=== PATIENT | female | born 1960 | race Caucasian/White ===

== ENCOUNTER 2017-02-07 12:15 | Emergency (ER) | payer OTHER ==
[~2017-02-07] VITALS: Ht 162.6 cm; Wt 68.5 kg
[~2017-02-07 12:15] MED LIST: AMLO-147 PO; CHOL2000 PO; DICL75TA2 PO; GABA300C16 PO
[2017-02-07 12:19] VITALS: Ht 162.6 cm; Wt 68.5 kg
[2017-02-07] MEDS ORDERED: FAMOTIDINE 20 MG TAB PO STA (16:09)
[2017-02-07] MEDS ORDERED: LIDOCAINE/MYLANTA 40 ML BTL PO STA (16:09)
[2017-02-07] MEDS ORDERED: KETOROLAC 15 MG INJ IV STA (16:09)
[2017-02-07] MEDS ORDERED: ONDANSETRON 4 MG INJ IV STA (16:09)
[2017-02-07] MEDS ORDERED: BELLADONNA/PHENOBARBITAL TAB PO STA (16:09)
[2017-02-07] MEDS ORDERED: SOD CHLORIDE 0.9% 1,000 ML IV STA (16:09)
[2017-02-07 16:46] LABS: ADD SCAN DIFF NO
--- NOTE | 2017-02-07 16:52 | RADRPT ---
PROCEDURE: CT Abdomen and Pelvis without contrast. CLINICAL INDICATION: Mid abdominal pain and vomiting for approximately 1 week[address] TECHNIQUE: CT scan of the abdomen and pelvis without contrast was performed on a multidetector hig h-resolution CT scanner. The patient was scanned without intravenous contrast. Coronal and sagittal reformatted images were obtained from the axial source images. Images were reviewed on a high-resol [employer] PACS workstation. The total exam CTDI equals 10.39 mGy and the total exam DLP equals 586.45 mG y-cm. COMPARISON: None. FINDINGS: CT abdomen: The lung bases are clear. The heart size is normal, without pericardial thickening or effusion. Rig ht hemidiaphragm is elevated. The liver is normal in size and density without focal mass or intrahepatic biliary dilatation. The spleen is normal in size and homogeneous in density. The stomach is grossly unremarkable. The panc reas as visualized is normal. The gallbladder and biliary tree are unremarkable and there is no ligia dence for biliary dilatation. The adrenal glands are symmetric and normal. A small 2 mm nonobstruc tive thrombus is present at the inferior pole of the right kidney and a small 3 mm nonobstructive ca lculus is present at the inferior pole of the left. There is no evidence of ureteral calculus or hy dronephrosis. No perinephric fat stranding or fluid collection is seen. The aorta is of normal caliber. There is no retroperitoneal lymphadenopathy. The mark hepatis reg ion is clear. The bowel and mesentery, as visualized, are equally unremarkable. There is a small fa t-containing umbilical hernia. CT pelvis: The small bowel loops situated within the pelvis are unremarkable. The pelvic organs are normal. T he pelvic sidewalls and inguinal regions are clear. The sigmoid colon and rectum are unremarkable. The appendix is normal. No mass, lymphadenopathy, or free fluid is seen. No acute inflammation is s een. The surrounding osseous structures are unremarkable. There is a mild diffuse posterior disk bulge a t L4-L5 resulting in mild central canal narrowing. No osteolytic or osteoblastic lesion is detected. IMPRESSION: 1. No abdominal or pelvic acute inflammatory process, mass, or lymphadenopathy. 2. Small bilateral nonobstructive renal calculi. 3. Small fat-containing umbilical hernia. 4. Hepatomegaly. 5. Elevated right hemidiaphragm. RPTAT: CC .Hemant Pham MD, MD Date Time Electronically viewed and signed by .Hemant Pham MD, MD on 02/07/2017 16:50 .A/
[2017-02-07 16:55] LABS: ALBUMIN 4.4 g/dl (3.3-4.9)
[2017-02-07 16:56] LABS: CHLORIDE 103 mmol/L (97-110); POTASSIUM 3.6 mmol/L (3.5-5.1); SODIUM 141 mmol/L (135-144)
[2017-02-07 16:58] LABS: ALBUMIN/GLOBULIN RATIO 1.25; ALKALINE PHOSPHATASE 113 IU/L (42-121); ANION GAP 15 (8-16); ASPARTATE AMINO TRANSFERASE 47 IU/L (15-46); BILIRUBIN,INDIRECT 0.8 mg/dl (0-1.1); BILIRUBIN,TOTAL 0.8 mg/dl (0.2-1.3); BLOOD UREA NITROGEN 16 mg/dl (7-20); CARBON DIOXIDE 27 mmol/L (21-31); CREATININE 0.64 mg/dl (0.44-1.00); TOTAL PROTEIN 7.9 g/dl (6.1-8.1)
[2017-02-07 16:59] LABS: ALANINE AMINOTRANSFERASE 71 IU/L (13-69); CALCIUM 10.7 mg/dl (8.4-10.2); GLUCOSE 95 mg/dl (70-220)
[2017-02-07 17:06] LABS: BASOPHILS % 0.2 % (0.0-2.0); EOSINOPHILS % 0.3 % (0.0-7.0); HEMATOCRIT 42.8 % (37.0-47.0); HEMOGLOBIN 14.7 g/dl (12.0-16.0); LYMPHOCYTES # 1.7 10^3/ul (0.8-2.9); LYMPHOCYTES % 17.2 % (15.0-51.0); MEAN CORPUSCULAR HEMOGLOBIN 28.7 pg (29.0-33.0); MEAN CORPUSCULAR HGB CONC 34.3 g/dl (32.0-37.0); MEAN CORPUSCULAR VOLUME 83.6 fl (82.0-101.0); MEAN PLATELET VOLUME 10.4 fl (7.4-10.4); MONOCYTE # 0.5 10^3/ul (0.3-0.9); MONOCYTES % 4.8 % (0.0-11.0); NEUTROPHIL # 7.7 10^3/ul (1.6-7.5); NEUTROPHILS % 76.5 % (39.0-77.0); PLATELET COUNT 311 10^3/UL (140-415); RED BLOOD COUNT 5.12 10^6/ul (4.20-5.40); RED CELL DISTRIBUTION WIDTH 12.2 % (11.5-14.5); WHITE BLOOD COUNT 10.1 10^3/ul (4.8-10.8)
[2017-02-07 17:11] LABS: TROPONIN-I < 0.012 ng/ml (0.00-0.12)
[2017-02-07] MEDS ORDERED: NAPR-688 PO (17:17)
[2017-02-07] MEDS ORDERED: OMEP20CA16 PO ×2 (17:17→18:23)
[2017-02-07] MEDS ORDERED: ATOR20TA38 PO (17:18)
[2017-02-07] MEDS ORDERED: HYDR200T39 PO (17:19)
[2017-02-07 18:16] LABS: ADD UMIC NO; URINE BILIRUBIN (Dip) NEGATIVE (NEGATIVE); URINE BLOOD (Dip) NEGATIVE (NEGATIVE); URINE COLOR LT. YELLOW (YELLOW); URINE GLUCOSE (Dip) NEGATIVE (NEGATIVE); URINE KETONES (Dip) NEGATIVE (NEGATIVE); URINE LEUKOCYTE ESTERASE (Dip) NEGATIVE (NEGATIVE); URINE NITRITE (Dip) NEGATIVE (NEGATIVE); URINE TOTAL PROTEIN (Dip) NEGATIVE (NEGATIVE); URINE UROBILINOGEN (Dip) 0.2 E.U./dL (0.1-1.0)
[2017-02-07] MEDS ORDERED: FAMO40TA52 PO (18:23)
[2017-02-07] MEDS ORDERED: ONDA4TAB8 PO (18:23)
[2017-02-07] MEDS ORDERED: MAG355OR14 PO (18:23)
--- NOTE | 2017-02-07 18:28 | ERD ---
ER Documentation Chief Complaint Date/Time DATE: 02/07/17 TIME: 18:24 Chief Complaint abdominal pain x 1.5 wks and vomiting this morning HPI 56-year-old woman complains of 2 weeks of epigastric abdominal discomfort and burning which has been nonradiating and nonexertional. She had 2 episodes of clear nonbloody nonbilious emesis today and has also had about 2 episodes of loose stools. She has had no blood per rectum or melena. She denies previous episodes of this type of abdominal pain and denies recent antibiotic use or ingestion of poorly prepared or stored foods. She denies weight loss, no chest pain or shortness of breath, no headache or blurry vision, no dysuria. ROS All systems reviewed and are negative except as per history of present illness. Medications Home Meds Active Scripts Omeprazole* (Omeprazole*) 20 Mg Capsule., 20 MG PO DAILY, #30 Prov:BHAKTI RICKS MD 02/07/17 Famotidine* (Famotidine*) 40 Mg Tablet, 40 MG PO HS, #30 TAB Prov:BHAKTI RICKS MD 02/07/17 Ondansetron Hcl* (Zofran*) 4 Mg Tablet, 4 MG PO Q8H Y for NAUSEA AND/OR VOMITING , #12 TAB Prov:BHAKTI RICKS MD 02/07/17 Mag Hydrox/Al Hydrox/Simeth (Maalox Advanced Suspension) 355 Ml Oral.susp, 2 TSP PO TID for PAIN, #24 OZ Prov:BHAKTI RICKS MD 02/07/17 Reported Medications Hydroxychloroquine Sulfate* (Hydroxychloroquine Sulfate*) 200 Mg Tablet, 200 MG PO DAILY, TAB 02/07/17 Atorvastatin Calcium* (Atorvastatin Calcium*) 20 Mg Tablet, 20 MG PO QHS, #30 TAB 02/07/17 Omeprazole* (Omeprazole*) 20 Mg Capsule.dr, 20 MG PO BID, #60 CAP 02/07/17 Naproxen* (Naproxen*) 500 Mg Tablet, 500 MG PO BID Y for PAIN, TAB 02/07/17 Gabapentin* (Gabapentin*) 300 Mg Capsule, 300 MG PO TID, #90 CAP 12/27/15 Cholecalciferol* (Vitamin D3*) 2,000 Unit Cap, 2000 UNIT PO DAILY, CAP 12/27/15 Amlodipine Besylate* (Amlodipine Besylate*) 10 Mg Tablet, 10 MG PO DAILY, #30 TAB 12/27/15 Discontinued Reported Medications Diclofenac Sodium* (Diclofenac Sodium*) 75 Mg Tablet.dr, 75 MG PO BID Y for MODERATE PAIN LEVEL 4-6, #60 TAB 12/27/15 Allergies Allergies: Coded Allergies: No Known Allergy (Unverified , 02/07/17) PMhx/Soc Obesity, hypertension, gastritis, hypercholesterolemia History of Surgery: No Anesthesia Reaction: No Hx Neurological Disorder: No Hx Respiratory Disorders: No Hx Cardiac Disorders: Yes (HTN) Hx Psychiatric Problems: No Hx Miscellaneous Medical Probl: No Hx Alcohol Use: No Hx Substance Use: No Hx Tobacco Use: No Smoking Status: Never smoker FmHx Family History: No diabetes Physical Exam Vitals Vital Signs Date Time Temp Pulse Resp B/P Pulse Ox O2 Delivery O2 Flow Rate FiO2 02/07/17 12:19 97.2 73 18 147/94 99 Physical Exam GENERAL: Well-developed, well-nourished, well-hydrated, in no apparent distress , looks nontoxic in appearance HEENT: Moist mucous membranes, pink conjunctiva, no cervical spine tenderness or step-off deformities, no goiter, no jaundice or icterus, extraocular movements intact without pain. No submandibular induration, and no pharyngeal erythema NEURO: Alert and oriented 3, cranial nerves II through XII intact bilaterally, pupils equal round reactive to light, no focal deficits or facial asymmetry, sensation intact distally Strength 5/5 in upper and lower extremities bilaterally CARDIAC: Regular rate and rhythm, no murmurs rubs or gallops LUNGS: Clear bilaterally no wheezing crackles or stridor ABDOMEN: Soft nontender, no guarding, no rigidity, no rebound, no psoas sign no obturator sign. Normoactive bowel sounds SKIN: Warm and dry to touch, no abrasions, contusions, or hematomas, no lacerations, no ecchymosis, no target lesions, and without ulcers EXTREMITIES: No clubbing cyanosis or edema, calves are bilaterally symmetrical, no Homans sign, no popliteal cord sign. Distal pulses equal and bilateral PSYCH: Normal affect without agitation or irritability Result Diagram: 02/07/17 1626 02/07/17 1626 Results 24 hrs Laboratory Tests Test 02/07/17 15:48 02/07/17 16:26 Urine Color LT. YELLOW Urine Clarity CLEAR Urine pH 6.0 Urine Specific [place] 1.020 Urine Ketones NEGATIVE Urine Nitrite NEGATIVE Urine Bilirubin NEGATIVE Urine Urobilinogen 0.2 E.U./dL Urine Leukocyte Esterase NEGATIVE Urine Hemoglobin NEGATIVE Urine Glucose NEGATIVE% Urine Total Protein NEGATIVE White Blood Count 10.110^3/ul Red Blood Count 5.1210^6/ul Hemoglobin 14.7g/dl Hematocrit 42.8% Mean Corpuscular Volume 83.6fl Mean Corpuscular Hemoglobin 28.7pg Mean Corpuscular Hemoglobin Concent 34.3g/dl Red Cell Distribution Width 12.2% Platelet Count 22204^3/UL Mean Platelet Volume 10.4fl Neutrophils % 76.5% Lymphocytes % 17.2% Monocytes % 4.8% Eosinophils % 0.3% Basophils % 0.2% Nucleated Red Blood Cells % 0.0/100WBC Neutrophils # 7.710^3/ul Lymphocytes # 1.710^3/ul Monocytes # 0.510^3/ul Eosinophils # 0.010^3/ul Basophils # 0.010^3/ul Nucleated Red Blood Cells # 0.010^3/ul Sodium Level 141mmol/L Potassium Level 3.6mmol/L Chloride Level 103mmol/L Carbon Dioxide Level 27mmol/L Anion Gap 15 Blood Urea Nitrogen 16mg/dl Creatinine 0.64mg/dl Glucose Level 95mg/dl Calcium Level 10.7mg/dl Total Bilirubin 0.8mg/dl Direct Bilirubin 0.00mg/dl Indirect Bilirubin 0.8mg/dl Aspartate Amino Transf (AST/SGOT) 47IU/L Alanine Aminotransferase (ALT/SGPT) 71IU/L Alkaline Phosphatase 113IU/L Troponin I < 0.012ng/ml Total Protein 7.9g/dl Albumin 4.4g/dl Globulin 3.50g/dl Albumin/Globulin Ratio 1.25 Lipase 84U/L Current Medications Medications (Trade) Dose Ordered Sig/Anthony Route PRN Reason Start Time Stop Time Status Last Admin Dose Admin Sodium Chloride (NS) 1,000 ml @ 1,000 mls/hr Q1H STAT IV 02/07/17 16:09 02/07/17 17:08 DC 02/07/17 16:42 Ondansetron HCl (Zofran Inj) 4 mg ONCE STAT IV 02/07/17 16:09 02/07/17 16:12 DC 02/07/17 16:42 Famotidine (Pepcid) 40 mg ONCE STAT PO 02/07/17 16:09 02/07/17 16:12 DC 02/07/17 16:42 Miscellaneous Medication (Gi Cocktail (2)) 40 ml ONCE STAT PO 02/07/17 16:09 02/07/17 16:12 DC 02/07/17 16:42 Belladonna/ Phenobarbital () 2 tab ONCE STAT PO 02/07/17 16:09 02/07/17 16:12 DC 02/07/17 16:42 Ketorolac Tromethamine (Toradol) 15 mg ONCE STAT IV 02/07/17 16:09 02/07/17 16:12 DC 02/07/17 16:42 Procedures/MDM IV line was established patient was placed on lunchroom monitor rhythm strip revealed a sinus rhythm at about 80 bpm with upright P and T waves. Patient was afebrile. EKG performed, read by me revealed a normal sinus rhythm at 68 bpm, left axis deviation, with a right ventricular conduction delay and a QRS duration of 110 ms, no concerning ST elevations or depressions noted. CT scan of the abdomen and pelvis was performed, given the patient's symptoms. There was no acute inflammatory or infectious pathology noted, vascular structures were unremarkable. Please refer radiologist's dictation for full report. CBC and electrolytes were normal, liver function tests are normal, troponin was negative, urine analysis was negative for infection. I treated the patient here with 1 L normal saline intravenously, Toradol 15 mg IV, Zofran 4 mg IV, GI cocktail 50 cc p.o., famotidine 40 mg p.o. with good response. Differential diagnoses considered, included but not limited to acute coronary syndrome, pulmonary embolism, aortic dissection, abdominal aortic aneurysm, sepsis, stroke, meningitis, encephalitis, pneumonia, appendicitis, cholecystitis , bowel obstruction, pyelonephritis, nephrolithiasis, cystitis, as well as metabolic, hematologic, and electrolyte abnormalities. As well as abscess, cellulitis, fractures, and dislocations. Patient feels much better at this time, and vital signs are normal, symptoms have improved. I did give strict instructions to return to the ED if symptoms continue or worsen, patient will otherwise follow-up with primary care physician. Patient understood instructions and agreed to plan. Departure Diagnosis: Primary Impression: Abdominal pain Abdominal location: epigastric Qualified Code: R10.13 - Epigastric pain Additional Impression: Gastritis Gastritis type: unspecified gastritis Chronicity: acute Gastritis bleeding : without bleeding Qualified Code: K29.00 - Acute gastritis without hemorrhage, unspecified gastritis type Condition: Good Patient Instructions: Abdominal Pain, Gastritis Vs. Ulcer Referrals: NARCISO LOYOLA (PCP) BHAKTI RICKS MD Feb 07, 2017 18:27
[2017-02-07 18:40] VITALS: BP 157/84; PULSE 65; RESP 17; TEMP 97.5
== END 2017-02-07 18:43 | disposition home or self-care (01) ==
LOC: E/R 12:15
DX: R10.13 Epigastric pain (principal); R40.2252 Coma scale, best verbal response, oriented, at arrival to emergency department; K29.00 Acute gastritis without bleeding; R11.10 Vomiting, unspecified; I10 Essential (primary) hypertension; E66.9 Obesity, unspecified; R40.2142 Coma scale, eyes open, spontaneous, at arrival to emergency department; R40.2362 Coma scale, best motor response, obeys commands, at arrival to emergency department; Z68.25 Body mass index [BMI] 25.0-25.9, adult
CPT/HCPCS: 36415; 74176; 80053; 81003; 83690; 84484; 85025; 93005; 96374; 96375; J1885; J2405; J7030; Z7502; Z7610

== ENCOUNTER 2018-04-07 11:26 | Observation (INO) | END 2018-04-08 15:25 | disposition home or self-care (01) ==